=== PATIENT | female | born 1985 | race Caucasian/White ===

== ENCOUNTER 2022-02-27 06:29 | Day surgery (SDC) | payer OTHER ==
[2022-02-27] MEDS ORDERED: Lactated Ringers 1,000 ML IV ONE (06:42)
[2022-02-27] MEDS ORDERED: CEFAZOLIN 2 GM-D5W BAG** 2 GM/50 ML ML IV ONE (06:42)
[2022-02-27] MEDS ORDERED: Lactated Ringers 1,000 ML IV SCH (07:00)
[2022-02-27] MEDS ORDERED: MEFOXIN 2 GM PREMIX** 2 GM/50 ML ML IV SCH (07:00)
[2022-02-27] MEDS ORDERED: CEFAZOLIN 2 GM-D5W BAG** 2 GM/50 ML ML IV SCH (07:30)
[2022-02-27] MEDS ORDERED: SUBLIMAZE 100 MCG/2 ML ONE (08:52)
[2022-02-27] MEDS ORDERED: Zofran 4 MG/2 ML VIAL ONE (08:52)
[2022-02-27] MEDS ORDERED: Decadron 4 MG INJ ONE (08:52)
[2022-02-27] MEDS ORDERED: DIPRIVAN 200 MG/20 ML IV ONE (08:52)
[2022-02-27] MEDS ORDERED: Xylocaine-Mpf 2% 5 Ml Vial ONE (08:52)
[2022-02-27] MEDS ORDERED: Hydromorphone 1 mg/ml Injection ONE (09:30)
[2022-02-27 10:47] VITALS: O2SAT 98
[2022-02-27 10:50] VITALS: BP 140/82; PULSE 82
--- NOTE | 2022-02-28 13:48 | OP ---
SURGERY DATE/TIME: 02/27/2022 0853 PREOPERATIVE DIAGNOSIS: Menorrhagia. POSTOPERATIVE DIAGNOSIS: Menorrhagia. PROCEDURE: Hysteroscopy D&C with endometrial ablation using NovaSure. SURGEON: Kieran Reyes D.O. DETASSELER: Miguel Kebede pearl technician. ANESTHESIA: General. ESTIMATED BLOOD LOSS: Minimal. COMPLICATIONS: None. INDICATIONS: The risks, benefits, indications and alternatives of the procedure were reviewed with the patient prior to the procedure. The patient understood the risk of infection, bleeding, bowel injury, bladder injury, ureteral injury, uterine perforation, pelvic infection, thromboembolic disorder associated with this surgery and desires to have this surgery as a possible means to alleviate her current medical condition. DESCRIPTION OF PROCEDURE AND FINDINGS: At this point the patient is taken to the operating room, given general sedation, placed in dorsal lithotomy position, prepped and draped in the usual sterile fashion. A weighted speculum is then placed in the patient's vagina and the anterior lip of the cervix was grasped with a single tooth tenaculum. Endocervical dilators were advanced through the endocervical canal as a means to dilate the cervix and the uterus was sounded to approximately 9 cm. From this point, a 5 mm hysteroscope was then placed through the endocervical canal where visualization revealed no gross abnormalities of the endometrial lining. From this point, the hysteroscope was removed and a curette was then placed into the fundus of the uterus and curettage performed in all quadrants of the uterus retrieving a mild amount of tissue. From this point, hemostasis was obtained and the NovaSure instrument was then taken and taken through the endocervical region towards the fundal region retracted approximately 1 cm and was engaged where the instrument was turned on for ablative time of approximately 38 seconds. The machine was set at 6.5 cm in length and 4 cm in width. After ablation, the instrument was then disengaged and removed from the uterine cavity without complication. From this point, all instruments were removed from the patient's vaginal region. The patient was then taken out of dorsal lithotomy position and was then taken to the recovery room in stable condition. All instruments and laps were accounted for x2.
== END 2022-02-27 10:45 | disposition home or self-care (01) ==
LOC: SDC 06:29
PROVIDERS: ATTEND Obstetrics & Gynecology
DX: N92.0 Excessive and frequent menstruation with regular cycle (principal)
CPT/HCPCS: 81025; J0690; J1100; J1170; J2405; J2704; J3010